=== PATIENT | female | born 1985 | race Caucasian/White ===

== ENCOUNTER 2018-05-10 10:14 | Day surgery (SDC) | payer BC ==
[~2018-05-10] VITALS: Ht 162.6 cm; Wt 61.8 kg
[2018-05-10] MEDS ORDERED: CYAN100T PO (10:47)
[2018-05-10] MEDS ORDERED: VALA1000 PO (10:47)
[2018-05-10 10:50] VITALS: BP 115/80
[2018-05-10] MEDS ORDERED: SODIUM CHLORIDE 0.9% 1,000 ML IV SCH (11:00)
[2018-05-10] MEDS ORDERED: PROPOFOL 10 MG/ML, 20ML ONE (12:10)
== END 2018-05-10 13:15 | disposition home or self-care (01) ==
LOC: CACL 10:14
PROVIDERS: ATTEND Internal Medicine Cardiovascular Disease
DX: I34.0 Nonrheumatic mitral (valve) insufficiency (principal); I63.9 Cerebral infarction, unspecified; Z79.82 Long term (current) use of aspirin
CPT/HCPCS: 93312; 93325; J2704

== ENCOUNTER → 2018-05-12 | Outpatient (CLI) | payer BC ==
[~2018-05-12] MED LIST: CYAN100T PO; VALA1000 PO
== END | disposition home or self-care (01) ==
LOC: CFH 12:28
PROVIDERS: ATTEND Nurse Practitioner Family
DX: I63.9 Cerebral infarction, unspecified (principal); G93.89 Other specified disorders of brain; M25.78 Osteophyte, vertebrae; Z86.73 Personal history of transient ischemic attack (TIA), and cerebral infarction without residual deficits
CPT/HCPCS: 70496; 70498; 70551